=== PATIENT | male | born 1945 | race Caucasian/White ===

== ENCOUNTER 2020-11-23 13:07 | Emergency (ER) | payer MEDICARE ==
[~2020-11-23] VITALS: Ht 177.8 cm; Wt 76.8 kg
[2020-11-23 13:16] VITALS: BP 121/76
[2020-11-23] MEDS ORDERED: CIPR-259 PO (14:40)
== END 2020-11-23 14:48 | disposition home or self-care (01) ==
LOC: ER 13:09
DX: S91.332A Puncture wound without foreign body, left foot, initial encounter (principal); L08.89 Other specified local infections of the skin and subcutaneous tissue; X58.XXXA Exposure to other specified factors, initial encounter; Y93.89 Activity, other specified; Y92.89 Other specified places as the place of occurrence of the external cause; Y99.8 Other external cause status
CPT/HCPCS: 73630; 99284

== ENCOUNTER 2021-05-29 13:59 | Outpatient (CLI) | payer MEDICARE ==
[2021-05-29] MEDS ORDERED: COVID-19 VACC, MRNA(PFIZER)/PF--BNT162b2 syringe IMVAC ONE (14:03)
== END 2021-05-29 23:59 | disposition home or self-care (01) ==
LOC: COVVAC 13:59
PROVIDERS: ATTEND Internal Medicine Infectious Disease
DX: Z23 Encounter for immunization (principal)
CPT/HCPCS: 0004A; 91300